=== PATIENT | female | born 1980 | race Caucasian/White ===

== ENCOUNTER 2016-12-31 18:06 | Emergency (ER) | payer MEDICAID, OTHER ==
[~2016-12-31] VITALS: Ht 157.5 cm; Wt 58.0 kg
[2016-12-31 18:10] VITALS: BP 130/82; PULSE 102; RESP 16; TEMP 98.5; O2SAT 99
[2016-12-31] MEDS ORDERED: DIVA250ER PO (18:22)
[2016-12-31 18:23] VITALS: BP 132/88; PULSE 88; RESP 18; TEMP 98; O2SAT 99
[2016-12-31] MEDS ORDERED: SODIUM CHLORIDE 0.9% FLUSH 10 ML FLUSH IVF PRN (18:30)
[2016-12-31] MEDS ORDERED: ASPIRIN 325 MG TAB PO ONE (18:30)
[2016-12-31 18:39] VITALS: O2SAT 98
[2016-12-31 18:46] LABS: AUTOMATED NEUTROPHIL # 8.9 TH/MM3 (1.8-7.7); BASOPHIL # 0.1 TH/MM3 (0-0.2); BASOPHIL % 0.7 % (0.0-2.0); EOSINOPHIL % 0.2 % (0.0-4.0); HEMATOCRIT 38.1 % (35.0-46.0); LYMPH % 15.1 % (9.0-44.0); LYMPHOCYTE # 1.8 TH/MM3 (1.0-4.8); MEAN CELL VOLUME 85.4 FL (80.0-100.0); MEAN CORPUSCULAR HEMOGLOBIN 30.3 PG (27.0-34.0); MEAN CORPUSCULAR HGB CONC 35.5 % (32.0-36.0); MONO % 7.9 % (0.0-8.0); NEUT % 76.1 % (16.0-70.0); PLATELET COUNT 259 TH/MM3 (150-450); RED BLOOD COUNT 4.46 MIL/MM3 (4.00-5.30); RED CELL DISTRIBUTION WIDTH 12.3 % (11.6-17.2); WHITE BLOOD COUNT 11.7 TH/MM3 (4.0-11.0)
[2016-12-31 18:47] LABS: HEMO FLAGS DIFF FINAL
[2016-12-31 18:54] LABS: CHLORIDE 105 MEQ/L (98-107); POTASSIUM 3.5 MEQ/L (3.5-5.1); SODIUM (NA) 139 MEQ/L (136-145)
[2016-12-31 18:57] LABS: ANION GAP 10 MEQ/L (5-15); BLOOD UREA NITROGEN 11 MG/DL (7-18); MAGNESIUM 2.3 MG/DL (1.5-2.5)
[2016-12-31 19:00] LABS: GLOMERULAR FILTRATION RATE 90 ML/MIN (>89)
[2016-12-31 19:03] LABS: CREATINE KINASE 108 U/L (26-192)
[2016-12-31] MEDS ORDERED: POTASSIUM CHLORIDE 20 MEQ CONTROLLED RELEASE TAB PO ONE (19:15)
[2016-12-31 19:16] VITALS: BP 113/78; PULSE 78; RESP 18; O2SAT 100
[2016-12-31 19:16] LABS: CKMB LESS THAN 0.5 NG/ML (0.5-3.6)
[2016-12-31] MEDS ORDERED: KETOROLAC TROMETHAMINE 30 MG/ML (IVP) VIAL IV PUSH ONE (19:30)
--- NOTE | 2016-12-31 20:14 | RADHPO ---
EXAM DATE/TIME: 12/31/2016 19:58 [facility] COMPARISON: CHEST SINGLE AP, February 23, 2015, 0:59. INDICATIONS : Chest pain. MEDICAL HISTORY : Bi-polar SURGICAL HISTORY : Tubal ligation. Tonsillectomy. ENCOUNTER: Initial ACUITY: 1 day PAIN SCORE: 7/10 LOCATION: Bilateral chest FINDINGS: A single view of the chest demonstrates the lungs to be symmetrically aerated without evidence of mas s, infiltrate or effusion. The cardiomediastinal contours are unremarkable. Osseous structures are intact. CONCLUSION: The lungs are clear. Antonio Valdovinos MD on December 31, 2016 at 20:12 Board Certified Radiologist. This report was verified electronically.
--- NOTE | 2016-12-31 20:22 | PD ---
HPI Chief Complaint: Chest Pain Time Seen by Provider: 18:19 Travel History International Travel<30 days: No Contact w/Intl Traveler<30days: No Traveled to known affect area: No History of Present Illness HPI This 36-year-old female is complaining of chest pain. Since around noon she is having an intermittent fairly sharp pain that affects the chest. It lasts for a few seconds and goes away. She is not short of breath. She has not had pain like this before though she has been here with atypical chest pain in the past. She had a cardiac catheterization in 2009 which was normal. She does not smoke. There is been no fever or chills. Pain is not reproducible with palpation and movement. PFSH Past Medical History Arthritis: No Asthma: No Autoimmune Disease: No Blood Disorders: No Bipolar Disorder: Yes Anxiety: Yes Depression: No Heart Rhythm Problems: No Cancer: No Cardiac Catheterization: Yes (2009 negative) Cardiovascular Problems: No High Cholesterol: No Chemotherapy: No Chest Pain: No Congestive Heart Failure: No COPD: No Cerebrovascular Accident: No Diabetes: No Diminished Hearing: No Endocrine: No GERD: No Glaucoma: No Genitourinary: No Headaches: No Hepatitis: No Hiatal Hernia: No Hypertension: No Immune Disorder: No Kidney Stones: No Musculoskeletal: Yes (back problems) Neurologic: No Psychiatric: No Reproductive: Yes (ENDOMETROSIS) Respiratory: No Migraines: No Myocardial Infarction: Yes (PER PT AT AGE 25) Radiation Therapy: No Renal Failure: No Seizures: No Sickle Cell Disease: No Sleep Apnea: No Thyroid Disease: No Ulcer: No Influenza Vaccination: Yes ?: Not LMP: 12/19 : 3 Para: 2 : 1 Tubal Ligation: Yes Past Surgical History Abdominal Surgery: No AICD: No Appendectomy: No Arteriovenous Shunt: No Cardiac Surgery: No Cholecystectomy: No Coronary Artery Bypass Graft: No Ear Surgery: No Endocrine Surgery: No Eye Surgery: No Genitourinary Surgery: No Gynecologic Surgery: No Insulin Pump: No Joint Replacement: No Oral Surgery: No Pacemaker: No Thoracic Surgery: No Tonsillectomy: Yes ( CHILD) Family History Family Myocardial Infarction: Yes (GRANDMA AND GRANDPA) Social History Alcohol Use: Yes (SOCIALLY) Tobacco Use: No Substance Use: No Allergies-Medications (Allergen,Severity, Reaction): Coded Allergies: Morphine (Verified Allergy, Severe, THROAT SWELLING, 12/31/16) Penicillin (Verified Allergy, Severe, THROAT SWELLING, 12/31/16) Reported Meds & Prescriptions Reported Meds & Active Scripts Active Reported Depakote ER (Divalproex Sodium) 250 Mg Keshawn 750 Mg PO HS Review of Systems General / Constitutional: No: Fever, Chills Eyes: No: Diploplia HENT: No: Headaches, Vertigo Cardiovascular: Positive: Chest Pain or Discomfort, No: Palpitations, Dyspnea on exertion Respiratory: No: Cough, Shortness of Breath Gastrointestinal: No: Vomiting, Diarrhea Genitourinary: No: Urgency, Frequency Musculoskeletal: No: Myalgias, Arthralgias Skin: No Rash, No Itching Neurologic: No: Weakness Psychiatric: No: Anxiety Endocrine: No: Heat Intolerance Hematologic/Lymphatic: No: Easy Bruising Physical Exam Narrative GENERAL: Well-developed female SKIN: Focused skin assessment warm/dry. HEAD: Atraumatic. Normocephalic. EYES: Pupils equal and round. No scleral icterus. No injection or drainage. ENT: No nasal bleeding or discharge. Mucous membranes pink and moist. NECK: Trachea midline. No JVD. CARDIOVASCULAR: Regular rate and rhythm. No murmur appreciated. RESPIRATORY: No accessory muscle use. Clear to auscultation. Breath sounds equal bilaterally. GASTROINTESTINAL: Abdomen soft, non-tender, nondistended. Hepatic and splenic margins not palpable. MUSCULOSKELETAL: No obvious deformities. No clubbing. No cyanosis. No edema. NEUROLOGICAL: Awake and alert. No obvious cranial nerve deficits. Motor grossly within normal limits. Normal speech. PSYCHIATRIC: Appropriate mood and affect; insight and judgment normal. Data Data Last Documented VS Vital Signs Date Time Temp Pulse Resp B/P Pulse Ox O2 Delivery O2 Flow Rate FiO2 12/31/16 20:48 74 16 115/76 99 12/31/16 19:16 Room Air 12/31/16 18:23 98.0 Orders Electrocardiogram (12/31/16 18:26) Basic Metabolic Panel (Bmp) (12/31/16 18:26) Ckmb (Isoenzyme) Profile (12/31/16 18:26) Complete Blood Count With Diff (12/31/16 18:26) Magnesium (Mg) (12/31/16 18:26) Troponin I (12/31/16 18:26) Chest, Single Ap (12/31/16 18:26) Ecg Monitoring (12/31/16 18:26) Iv Access Insert/Monitor (12/31/16 18:26) Oximetry (12/31/16 18:26) Aspirin (Aspirin) (12/31/16 18:30) Sodium Chloride 0.9% Flush (Ns Flush) (12/31/16 18:30) CKMB (12/31/16 18:36) CKMB% (12/31/16 18:36) Potassium Chloride (Kcl) (12/31/16 19:15) Ketorolac Inj (Toradol Inj) (12/31/16 19:30) Oxycodone-Acetamin 5-325 Mg (Percocet (12/31/16 20:30) Labs Laboratory Tests Test 12/31/16 18:36 White Blood Count 11.7 TH/MM3 Red Blood Count 4.46 MIL/MM3 Hemoglobin 13.5 GM/DL Hematocrit 38.1 % Mean Corpuscular Volume 85.4 FL Mean Corpuscular Hemoglobin 30.3 PG Mean Corpuscular Hemoglobin 35.5 % Concent Red Cell Distribution Width 12.3 % Platelet Count 259 TH/MM3 Mean Platelet Volume 7.6 FL Neutrophils (%) (Auto) 76.1 % Lymphocytes (%) (Auto) 15.1 % Monocytes (%) (Auto) 7.9 % Eosinophils (%) (Auto) 0.2 % Basophils (%) (Auto) 0.7 % Neutrophils # (Auto) 8.9 TH/MM3 Lymphocytes # (Auto) 1.8 TH/MM3 Monocytes # (Auto) 0.9 TH/MM3 Eosinophils # (Auto) 0.0 TH/MM3 Basophils # (Auto) 0.1 TH/MM3 CBC Comment DIFF FINAL Differential Comment Sodium Level 139 MEQ/L Potassium Level 3.5 MEQ/L Chloride Level 105 MEQ/L Carbon Dioxide Level 24.0 MEQ/L Anion Gap 10 MEQ/L Blood Urea Nitrogen 11 MG/DL Creatinine 0.74 MG/DL Estimat Glomerular Filtration 90 ML/MIN Rate Random Glucose 87 MG/DL Calcium Level 8.8 MG/DL Magnesium Level 2.3 MG/DL Total Creatine Kinase 108 U/L Creatine Kinase MB LESS THAN 0.5 NG/ML Troponin I LESS THAN 0.02 NG/ML MDM Medical Decision Making Medical Screen Exam Complete: Yes Emergency Medical Condition: Yes Medical Record Reviewed: Yes Differential Diagnosis EKG shows normal sinus rhythm. Potassium is 3.5. Her troponin is normal. Chest x-ray is negative. Etiology for the pain is not clear. She has had some episodes of pain in the ER. Admission to chest pain center was offered though I really do not think this is cardiac pain. She wishes to be released I will order 2 Percocet now. I suspect this is chest wall pain Narrative Course Patient's history is not suggestive of cardiac illness. She has had a negative cardiac catheter 2 years ago. Lab work is unremarkable. Etiology for the pain is not clear Diagnosis Primary Impression: Atypical chest pain Additional Instructions: Return as needed Disposition: 01 DISCHARGE HOME Condition: Stable Tucker Josue MD Dec 31, 2016 20:22
[2016-12-31] MEDS ORDERED: oxyCODONE/ACETAMINOPHEN 5 MG/325 MG TAB PO ONE (20:30)
[2016-12-31 20:48] VITALS: BP 115/76
--- NOTE | 2017-01-01 14:33 | EKG ---
Date Performed: 12/31/2016 Time Performed: 18:15:48 PTAGE: 36 years EKG: Sinus rhythm rSr'(V1) - probable normal variant Anterior T wave changes are nonspecific Borderline ECG PREVIOUS TRACING : 02/23/2015 03.28 Compared to prior tracing no significant change DOCTOR: Carson Cote Interpretating Date/Time 01/01/2017 14:28:06
== END 2016-12-31 20:50 | disposition home or self-care (01) ==
LOC: PHED 18:06
DX: R07.89 Other chest pain (principal); R94.31 Abnormal electrocardiogram [ECG] [EKG]
CPT/HCPCS: 71010; 80048; 82550; 82552; 83735; 84484; 85025; 93005; 96374; 99285; J1885

== ENCOUNTER 2018-01-17 12:22 | Emergency (ER) | payer MEDICAID ==
[~2018-01-17] VITALS: Ht 157.5 cm; Wt 61.0 kg
[~2018-01-17 12:22] MED LIST: DIVA250ER PO; LURA20TA PO; TRAZ50TA12 PO
[2018-01-17 12:24] VITALS: BP 132/79; PULSE 95; RESP 18; TEMP 98.6; O2SAT 98
[2018-01-17] MEDS ORDERED: BUPR150CR PO (12:35)
[2018-01-17 12:47] LABS: BILIRUBIN, URINE NEG (NEG); BLOOD, URINE NEG (NEG); GLUCOSE,URINE NEG (NEG); KETONE, URINE NEG (NEG); NITRITE,URINE NEG (NEG); URINE COLOR YELLOW (YELLW/STRAW); URINE LEUKOCYTE ESTERASE NEG (NEG)
[2018-01-17] MEDS ORDERED: SODIUM CHLOR 0.9% 1000 ML INJ 1,000 ML IV SCH (12:51)
[2018-01-17 12:58] LABS: AMORPHOUS SEDIMENT, URINE FEW; BACTERIA, URINE FEW /hpf; SQUAMOUS EPITHELIAL CELL URINE > 8 /hpf (0-5)
[2018-01-17] MEDS ORDERED: HYDROmorphone HCL PF 2 MG/ML VIAL IV PUSH ONE (13:00)
[2018-01-17] MEDS ORDERED: ONDANSETRON HCL 4 MG/2 ML VIAL IVP ONE (13:00)
[2018-01-17] MEDS ORDERED: SODIUM CHLORIDE 0.9% FLUSH 10 ML FLUSH IV FLUSH PRN (13:00)
[2018-01-17 13:09] LABS: AUTOMATED NEUTROPHIL # 3.6 TH/MM3 (1.8-7.7); BASOPHIL % 0.6 % (0.0-2.0); EOSINOPHIL % 0.6 % (0.0-4.0); HEMATOCRIT 37.2 % (35.0-46.0); HEMOGLOBIN 12.5 GM/DL (11.6-15.3); LYMPH % 20.6 % (9.0-44.0); MEAN CELL VOLUME 86.3 FL (80.0-100.0); MEAN CORPUSCULAR HGB CONC 33.6 % (32.0-36.0); MONO % 9.6 % (0.0-8.0); MONOCYTE # 0.5 TH/MM3 (0-0.9); NEUT % 68.6 % (16.0-70.0); PLATELET COUNT 235 TH/MM3 (150-450); RED BLOOD COUNT 4.31 MIL/MM3 (4.00-5.30); RED CELL DISTRIBUTION WIDTH 11.8 % (11.6-17.2); WHITE BLOOD COUNT 5.1 TH/MM3 (4.0-11.0)
[2018-01-17 13:16] LABS: CHLORIDE 108 MEQ/L (98-107); SODIUM (NA) 138 MEQ/L (136-145)
[2018-01-17 13:19] LABS: CALCIUM 9.1 MG/DL (8.5-10.1)
[2018-01-17 13:20] LABS: ALBUMIN 4.1 GM/DL (3.4-5.0); BICARBONATE 27.7 MEQ/L (21.0-32.0); BLOOD UREA NITROGEN 17 MG/DL (7-18); GLUCOSE,RANDOM 114 MG/DL (74-106)
--- NOTE | 2018-01-17 13:21 | PD ---
HPI Chief Complaint: Abdominal Pain Time Seen by Provider: 12:46 Travel History International Travel<30 days: No Contact w/Intl Traveler<30days: No Traveled to known affect area: No History of Present Illness HPI This 37-year-old female is complaining of right lower quadrant pain. She says the pain began yesterday. He was initially somewhat intermittent and not too bad but is gotten progressively worse. She has had some nausea and has not eaten much. She has a history of ovarian cysts. She has had a tubal ligation. The pain is gotten progressively worse. It is worse when she is sitting up PFS Past Medical History Arthritis: No Asthma: No Autoimmune Disease: No Blood Disorders: No Bipolar Disorder: Yes Anxiety: Yes Depression: No Heart Rhythm Problems: No Cancer: No Cardiac Catheterization: Yes (2009 negative) Cardiovascular Problems: No High Cholesterol: No Chemotherapy: No Chest Pain: No Congestive Heart Failure: No COPD: No Cerebrovascular Accident: No Diabetes: No Diminished Hearing: No Endocrine: No Gastrointestinal Disorders: No GERD: No Glaucoma: No Genitourinary: No Headaches: No Hepatitis: No Hiatal Hernia: No Heparin Induced Thrombocytopen: No Hypertension: No Immune Disorder: No Implanted Vascular Access Dvce: No Kidney Stones: No Musculoskeletal: Yes (back problems) Neurologic: No Psychiatric: No Reproductive: Yes (ENDOMETROSIS) Respiratory: No Migraines: No Myocardial Infarction: Yes (PER PT AT AGE 25) Radiation Therapy: No Renal Failure: No Seizures: No Sickle Cell Disease: No Sleep Apnea: No Thyroid Disease: No Ulcer: No Tetanus Vaccination: Unknown ?: Not LMP: 12/2017 : 3 Para: 2 : 1 Tubal Ligation: Yes Past Surgical History Abdominal Surgery: No AICD: No Appendectomy: No Arteriovenous Shunt: No Cardiac Surgery: No Cholecystectomy: No Coronary Artery Bypass Graft: No Ear Surgery: No Endocrine Surgery: No Eye Surgery: No Genitourinary Surgery: No Gynecologic Surgery: No Insulin Pump: No Joint Replacement: No Neurologic Surgery: No Oral Surgery: No Pacemaker: No Thoracic Surgery: No Tonsillectomy: Yes ( CHILD) Other Surgery: No Family History Family Myocardial Infarction: Yes (GRANDMA AND GRANDPA) Social History Alcohol Use: Yes (SOCIALLY) Tobacco Use: No Substance Use: No Allergies-Medications (Allergen,Severity, Reaction): Coded Allergies: morphine (Unverified Allergy, Severe, THROAT SWELLING, 01/17/18) penicillin G (Unverified Allergy, Severe, THROAT SWELLING, 01/17/18) Reported Meds & Prescriptions Reported Meds & Active Scripts Active Reported Wellbutrin SR 12 HR (Bupropion HCl) 150 Mg Tab 75 Mg PO DAILY Latuda (Lurasidone) 20 Mg Tab 20 Mg PO DAILY Depakote ER (Divalproex Sodium) 250 Mg Keshawn 750 Mg PO HS Review of Systems General / Constitutional: No: Fever, Chills Eyes: No: Diploplia, Blurred Vision HENT: No: Headaches, Vertigo Cardiovascular: No: Chest Pain or Discomfort, Palpitations Respiratory: No: Cough, Shortness of Breath Gastrointestinal: Positive: Nausea, Abdominal Pain Genitourinary: No: Urgency, Frequency Skin: No Itching Physical Exam Narrative GENERAL: Well-developed female SKIN: Focused skin assessment warm/dry. HEAD: Atraumatic. Normocephalic. EYES: Pupils equal and round. No scleral icterus. No injection or drainage. ENT: No nasal bleeding or discharge. Mucous membranes pink and moist. NECK: Trachea midline. No JVD. CARDIOVASCULAR: Regular rate and rhythm. No murmur appreciated. RESPIRATORY: No accessory muscle use. Clear to auscultation. Breath sounds equal bilaterally. GASTROINTESTINAL: Abdomen soft, there is right lower quadrant tenderness with localized guarding nondistended. Hepatic and splenic margins not palpable. Pelvic: Slight discharge. There is right adnexal tenderness MUSCULOSKELETAL: No obvious deformities. No clubbing. No cyanosis. No edema. NEUROLOGICAL: Awake and alert. No obvious cranial nerve deficits. Motor grossly within normal limits. Normal speech. PSYCHIATRIC: Appropriate mood and affect; insight and judgment normal. Data Data Last Documented VS Vital Signs Date Time Temp Pulse Resp B/P (MAP) Pulse Ox O2 Delivery O2 Flow Rate FiO2 01/17/18 13:30 16 01/17/18 12:24 98.6 95 132/79 (96) 98 Orders Orders Urinalysis - C+S If Indicated (01/17/18 12:25) Ed Urine Pregnancytest Poc (01/17/18 12:25) Complete Blood Count With Diff (01/17/18 12:51) Comprehensive Metabolic Panel (01/17/18 12:51) Ct Abd/Pel W Iv Contrast(Rout) (01/17/18 12:51) Ondansetron Inj (Zofran Inj) (01/17/18 13:00) Sodium Chlor 0.9% 1000 Ml Inj (Ns 1000 M (01/17/18 12:51) Sodium Chloride 0.9% Flush (Ns Flush) (01/17/18 13:00) Hydromorphone Pf Inj (Dilaudid Pf Inj) (01/17/18 13:00) Iohexol 350 Inj (Omnipaque 350 Inj) (01/17/18 13:22) Labs Laboratory Tests Test 01/17/18 12:33 01/17/18 12:55 Urine Collection Type CLEAN CATCH Urine Color YELLOW Urine Turbidity SL CLOUDY Urine pH 7.0 Urine Specific [place] 1.020 Urine Protein NEG mg/dL Urine Glucose (UA) NEG mg/dL Urine Ketones NEG mg/dL Urine Occult Blood NEG Urine Nitrite NEG Urine Bilirubin NEG Urine Urobilinogen 0.2 MG/DL Urine Leukocyte Esterase NEG Urine WBC 3-5 /hpf Urine Squamous Epithelial Cells > 8 /hpf Urine Amorphous Sediment FEW Urine Bacteria FEW /hpf Microscopic Urinalysis Comment CULT NOT INDICATED Urine Collection Time 12:33 White Blood Count 5.1 TH/MM3 Red Blood Count 4.31 MIL/MM3 Hemoglobin 12.5 GM/DL Hematocrit 37.2 % Mean Corpuscular Volume 86.3 FL Mean Corpuscular Hemoglobin 29.0 PG Mean Corpuscular Hemoglobin Concent 33.6 % Red Cell Distribution Width 11.8 % Platelet Count 235 TH/MM3 Mean Platelet Volume 8.0 FL Neutrophils (%) (Auto) 68.6 % Lymphocytes (%) (Auto) 20.6 % Monocytes (%) (Auto) 9.6 % Eosinophils (%) (Auto) 0.6 % Basophils (%) (Auto) 0.6 % Neutrophils # (Auto) 3.6 TH/MM3 Lymphocytes # (Auto) 1.0 TH/MM3 Monocytes # (Auto) 0.5 TH/MM3 Eosinophils # (Auto) 0.0 TH/MM3 Basophils # (Auto) 0.0 TH/MM3 CBC Comment DIFF FINAL Differential Comment Blood Urea Nitrogen 17 MG/DL Creatinine 0.71 MG/DL Random Glucose 114 MG/DL Total Protein 7.4 GM/DL Albumin 4.1 GM/DL Calcium Level 9.1 MG/DL Alkaline Phosphatase 55 U/L Aspartate Amino Transf (AST/SGOT) 10 U/L Alanine Aminotransferase (ALT/SGPT) 27 U/L Total Bilirubin 0.4 MG/DL Sodium Level 138 MEQ/L Potassium Level 3.8 MEQ/L Chloride Level 108 MEQ/L Carbon Dioxide Level 27.7 MEQ/L Anion Gap 2 MEQ/L Estimat Glomerular Filtration Rate 94 ML/MIN MDM Medical Decision Making Medical Screen Exam Complete: Yes Emergency Medical Condition: Yes Medical Record Reviewed: Yes Differential Diagnosis Differential includes ovarian cyst, appendicitis, cervicitis Narrative Course White count is 5000. CT scan was obtained and shows a 4 cm right ovarian cyst. It is a complex cyst which may be hemorrhagic Diagnosis Primary Impression: Ovarian cyst Scripts Oxycodone-Acetaminophen (Percocet) 5-325 mg Tab 1 TAB PO Q4H Y for PAIN, #12 TAB 0 Refills Prov: Tucker Josue MD 01/17/18 Disposition: 01 DISCHARGE HOME Condition: Stable Tucker Josue MD January 17, 2018 13:21
[2018-01-17] MEDS ORDERED: IOHEXOL 350 MG/ML 10 ML VIAL (for RAD DIAG) IVCONTRAST ONE (13:22)
[2018-01-17 13:23] LABS: ALT (GPT) 27 U/L (10-53); AST (GOT) 10 U/L (15-37); CREATININE 0.71 MG/DL (0.50-1.00); GLOMERULAR FILTRATION RATE 94 ML/MIN (>89)
[2018-01-17 13:24] LABS: TOTAL BILIRUBIN ADULT 0.4 MG/DL (0.2-1.0)
[2018-01-17 13:25] LABS: TOTAL PROTEIN 7.4 GM/DL (6.4-8.2)
[2018-01-17 13:26] LABS: ALKALINE PHOSPHATASE 55 U/L (45-117)
--- NOTE | 2018-01-17 13:43 | RADRPT ---
EXAM DATE/TIME: 01/17/2018 13:14 [facility] COMPARISON: No previous studies available for comparison. INDICATIONS : Right lower quadrant pain. Nausea. IV CONTRAST: 85 cc Omnipaque 350 (iohexol) IV ORAL CONTRAST: No oral contrast ingested. RADIATION DOSE: 7.57 CTDIvol (mGy) MEDICAL HISTORY : Myocardial infarction. SURGICAL HISTORY : Tubal ligation. ENCOUNTER: Initial ACUITY: 1 day PAIN SCALE: 7/10 LOCATION: Right lower quadrant TECHNIQUE: Volumetric scanning of the abdomen and pelvis was performed. Using automated exposure control and ad justment of the mA and/or kV according to patient size, radiation dose was kept as low as reasonably achievable to obtain optimal diagnostic quality images. DICOM format image data is available electro nically for review and comparison. FINDINGS: Lung bases are clear no acute findings in the liver, spleen, adrenals or pancreas. The liver is enlar ged to 20 cm in length. Tiny bilateral renal cysts. No calcified gallstones or biliary ductal dilatat ion. No free fluid no bowel obstruction. No adenopathy. Within the pelvis there is a mildly complex 4.4 cm right adnexal mass, probably a complex ovarian cys t. CONCLUSION: 1. 4.4 cm complex fluid collection in right adnexa. No significant surrounding inflammatory changes. Differential diagnosis includes a hemorrhagic ovarian cyst. Camilo Andersen MD on January 17, 2018 at 13:35 Board Certified Radiologist. This report was verified electronically.
[2018-01-17 13:56] VITALS: BP 106/71; PULSE 70; RESP 16; O2SAT 99
[2018-01-17] MEDS ORDERED: PERC5TAB12 PO (13:57)
== END 2018-01-17 14:14 | disposition home or self-care (01) ==
LOC: PHED 12:22
DX: N83.201 Unspecified ovarian cyst, right side (principal); F31.9 Bipolar disorder, unspecified; F41.9 Anxiety disorder, unspecified; Z88.0 Allergy status to penicillin; Z88.5 Allergy status to narcotic agent; Z79.899 Other long term (current) drug therapy
CPT/HCPCS: 74177; 80053; 81001; 84703; 85025; 96361; 96374; 96375; 99284; J1170; J2405; J7030; Q9967